=== PATIENT | male | born 1995 | race Hispanic/Latino ===

== ENCOUNTER 2019-03-09 19:06 | Emergency (ER) | payer OTHER ==
[2019-03-09] MEDS ORDERED: ONDANSETRON 4 MG (ODT) TAB ONE (19:35)
[2019-03-09] MEDS ORDERED: ACETAMINOPHEN 500 MG TAB ONE (20:16)
--- NOTE | 2019-03-09 20:16 | ER ---
Nurse's Notes [facility] Name: George Monteiro Age: 23 yrs Sex: Male : 1995 Arrival Date: 03/09/2019 Time: 19:11 Bed 13 Private MD: Diagnosis: Influenza due to other identified influenza virus-influenza B Presentation: 03/09 19:18 Presenting complaint: Patient states: Fever of TMAX 101 UP TO 104, reports taking sg dayquil at around 1100 today, reports chills and bodyaches and nausea for 1 day now. Transition of care: patient was not received from another setting of care. Onset of symptoms was March 09, 2019. Risk Assessment: Do you want to hurt yourself or someone else? Patient reports no desire to harm self or others. Initial Sepsis Screen: Does the patient meet any 2 criteria? HR > 90 bpm. Does the patient have a suspected source of infection? No. Patient's initial sepsis screen is negative. Care prior to arrival: None. 19:18 Method Of Arrival: Ambulatory sg 19:18 Acuity: PRUDENCE 4 sg Historical: - Allergies: 19:21 No Known Allergies; sg - Home Meds: 19:21 None [Active]; sg - PMHx: 19:21 None; sg - PSHx: 19:21 None; sg - Immunization history:: Adult Immunizations up to date. - Social history:: Smoking status: Patient/guardian denies using tobacco. - Ebola Screening: : Patient negative for fever greater than or equal to 101.5 degrees Fahrenheit, and additional compatible Ebola Virus Disease symptoms Patient denies exposure to infectious person Patient denies travel to an Ebola-affected area in the 21 days before illness onset No symptoms or risks identified at this time. Assessment: 19:20 General: Appears in no apparent distress. uncomfortable, well groomed, well developed, sg well nourished, Behavior is calm, cooperative, appropriate for age. Pain: Complains of pain in body aches. Neuro: Level of Consciousness is awake, alert, obeys commands, Oriented to person, place, time. Cardiovascular: Heart tones S1 S2 present. Respiratory: Airway is patent Respiratory effort is even, unlabored, Respiratory pattern is. GI: Abdomen is flat, non-distended, Reports nausea. : No signs and/or symptoms were reported regarding the genitourinary system. EENT: No signs and/or symptoms were reported regarding the EENT system. Derm: Skin is pink, warm \T\ dry. Musculoskeletal: Circulation, motion, and sensation intact. Range of motion: intact in all extremities. Vital Signs: 19:19 BP 125 / 67; Pulse 98; Resp 18; Pulse Ox 100% on R/A; Weight 82.55 kg; Height 5 ft. 9 sg in. (175.26 cm); Pain 4/10; 19:19 Temp 99.5; dm5 20:10 Temp 101.6(O); jb5 19:19 Body Mass Index 26.88 (82.55 kg, 175.26 cm) sg ED Course: 19:11 Patient arrived in ED. cf2 19:16 Jung Page PA is PHCP. cp 19:16 Max Ybarra MD is Attending Physician. cp 19:18 Marbin Beasley, RN is Primary Nurse. sg 19:19 Triage completed. sg 19:21 Arm band placed on. sg 20:05 Flu and/or RSV swab sent to lab. Strep swab sent to lab. sg 20:14 Strep Sent. jb5 20:14 Influenza Screen (a \T\ B) Sent. jb5 20:40 No provider procedures requiring assistance completed. Patient did not have IV access ss during this emergency room visit. Administered Medications: 19:30 Drug: Zofran 4 mg Route: PO; sg 20:18 Drug: Tylenol 1000 mg Route: PO; sg Outcome: 20:14 Discharge ordered by MD. cp 20:40 Discharged to home ambulatory. ss 20:40 Condition: good 20:40 Discharge instructions given to patient, family, Instructed on discharge instructions, follow up and referral plans. medication usage, Demonstrated understanding of instructions, follow-up care, medications, Prescriptions given X 3. 20:41 Patient left the ED. dm5 Signatures: Ebony Shore RN RN dm5 Gay, Steven, RN RN Roslyn Carpio RN RN Jung Page PA PA cp Broussard, Jennifer jb5 Dony Gregory cf2
--- NOTE | 2019-03-09 20:16 | EDPHYS ---
Physician Documentation [facility] Name: George Monteiro Age: 23 yrs Sex: Male : 1995 Arrival Date: 03/09/2019 Time: 19:11 Bed 13 Private MD: ED Physician Max Ybarra HPI: 03/09 19:30 This 23 yrs old Male presents to ER via Ambulatory with complaints of Flu cp Symptoms. 19:30 The patient or guardian reports flu symptoms, arthralgias, myalgias, fever. cp 19:30 Onset: The symptoms/episode began/occurred this morning. Associated signs and symptoms: cp Pertinent positives: fever, nausea, sore throat, Pertinent negatives: diarrhea, vomiting. Severity of symptoms: in the emergency department the symptoms are unchanged despite home interventions. diagnosed with influenza and currently taking prescribed Tamiflu. Historical: - Allergies: 19:21 No Known Allergies; sg - Home Meds: 19:21 None [Active]; sg - PMHx: 19:21 None; sg - PSHx: 19:21 None; sg - Immunization history:: Adult Immunizations up to date. - Social history:: Smoking status: Patient/guardian denies using tobacco. - Ebola Screening: : Patient negative for fever greater than or equal to 101.5 degrees Fahrenheit, and additional compatible Ebola Virus Disease symptoms Patient denies exposure to infectious person Patient denies travel to an Ebola-affected area in the 21 days before illness onset No symptoms or risks identified at this time. ROS: 19:35 Constitutional: Positive for body aches, chills, fever, Negative for poor PO intake. cp 19:35 Eyes: Negative for injury, pain, redness, and discharge. cp 19:35 ENT: Positive for sore throat, Negative for drainage from ear(s), ear pain, difficulty swallowing, difficulty handling secretions. 19:35 Neck: Negative for stiffness. 19:35 Respiratory: Positive for cough. 19:35 Abdomen/GI: Positive for nausea, Negative for vomiting, diarrhea, constipation. 19:35 Skin: Negative for rash. 19:35 Neuro: Negative for altered mental status, headache, weakness. 19:35 All other systems are negative. Exam: 19:40 Constitutional: The patient appears in no acute distress, alert, awake, non-toxic, well cp developed, well nourished, febrile. 19:40 Head/Face: Normocephalic, atraumatic. cp 19:40 Eyes: Periorbital structures: appear normal, Conjunctiva: normal, no exudate, no injection, Lids and lashes: appear normal, bilaterally. 19:40 ENT: External ear(s): are unremarkable, Ear canal(s): are normal, clear, TM's: dullness, bilaterally, Nose: is normal, Mouth: Lips: moist, Oral mucosa: moist, Posterior pharynx: Airway: no evidence of obstruction, patent, Tonsils: with erythema, no enlargement, no exudate, swelling, is not appreciated, erythema, that is mild, exudate, is not appreciated. 19:40 Neck: ROM/movement: is normal, is supple, no meningismus, no nuchal rigidity. 19:40 Chest/axilla: Inspection: normal, Palpation: is normal, no crepitus, no tenderness. 19:40 Cardiovascular: Rate: normal, Rhythm: regular. 19:40 Respiratory: the patient does not display signs of respiratory distress, Respirations: normal, no use of accessory muscles, no retractions, no splinting, no tachypnea, labored breathing, is not present, Breath sounds: bronchial sounds, that are mild, decreased breath sounds, are not appreciated, stridor, is not appreciated, + upper airway congestion. wheezing: is not appreciated. 19:40 Abdomen/GI: Inspection: abdomen appears normal, Palpation: abdomen is soft and non-tender, in all quadrants. 19:40 Skin: no rash present. 19:40 Neuro: Orientation: to person, place \T\ time. Mentation: is normal, Motor: moves all fours, strength is normal. Vital Signs: 19:19 BP 125 / 67; Pulse 98; Resp 18; Pulse Ox 100% on R/A; Weight 82.55 kg; Height 5 ft. 9 sg in. (175.26 cm); Pain 4/10; 19:19 Temp 99.5; dm5 20:10 Temp 101.6(O); jb5 19:19 Body Mass Index 26.88 (82.55 kg, 175.26 cm) sg MDM: 19:16 Patient medically screened. cp 20:00 Differential diagnosis: bronchitis, flu, URI, strep throat. cp 20:14 Antibiotic administration: Not indicated. cp 20:14 Data reviewed: vital signs, nurses notes, lab test result(s), and as a result, I will cp discharge patient. Counseling: I had a detailed discussion with the patient and/or guardian regarding: the historical points, exam findings, and any diagnostic results supporting the discharge/admit diagnosis, lab results, to return to the emergency department if symptoms worsen or persist or if there are any questions or concerns that arise at home. 03/09 19:24 Order name: Influenza Screen (a \T\ B) 03/09 19:24 Order name: Strep 03/09 19:25 Order name: Influenza Screen (A ; Complete Time: 20:12 EDID 03/09 20:12 Interpretation: Normal except: FLUB FLU B ----- \T\nbsp; \T\nbsp; \T\nbsp; \T\nbsp; \T\nbsp; cp \T\nbsp; \T\nbsp; \T\nbsp; \T\nbsp; POSITIVE for FLU B protein antigen. 03/09 19:25 Order name: Group A Streptococcus Rapid Sc; Complete Time: 20:12 EDMS 03/09 20:07 Order name: Throat Culture EDID 03/09 19:24 Order name: PO challenge; Complete Time: 20:04 cp Administered Medications: 19:30 Drug: Zofran 4 mg Route: PO; sg 20:18 Drug: Tylenol 1000 mg Route: PO; sg Disposition: 03/09/19 20:14 Discharged to Home. Impression: Influenza due to other identified influenza virus - influenza B. - Condition is Stable. - Discharge Instructions: Influenza, Adult. - Prescriptions for Zofran 4 mg Oral Tablet - take 1 tablet by ORAL route every 12 hours As needed; 20 tablet. Tamiflu 75 mg Oral Capsule - take 1 tablet by ORAL route every 12 hours for 5 days; 10 tablet. Ibuprofen 800 mg Oral Tablet - take 1 tablet by ORAL route every 8 hours As needed take with food; 30 tablet. - Medication Reconciliation Form, Thank You Letter, Antibiotic Education, Prescription Opioid Use form. - Follow up: Private Physician; When: 2 - 3 days; Reason: Worsening of condition. - Problem is new. - Symptoms have improved. Signatures: Dispatcher [employer] EDID Ebony Shore, RN RN dm5 Marbin Beasley RN RN sg Jung Page PA PA cp Corrections: (The following items were deleted from the chart) 20:41 20:14 03/09/2019 20:14 Discharged to Home. Impression: Influenza due to other dm5 identified influenza virus - influenza B. Condition is Stable. Prescriptions for Zofran 4 mg Oral Tablet - take 1 tablet by ORAL route every 12 hours As needed; 20 tablet, Tamiflu 75 mg Oral Capsule - take 1 tablet by ORAL route every 12 hours for 5 days; 10 tablet. and Forms are Medication Reconciliation Form, Thank You Letter, Antibiotic Education, Prescription Opioid Use. Follow up: Private Physician; When: 2 - 3 days; Reason: Worsening of condition. Problem is new. Symptoms have improved. cp 03/10 16:19 03/09 19:05 Constitutional: Positive for body aches, chills, fever, Negative for poor cp PO intake, cp
[2019-03-09 20:58] VITALS: BP 125/67; TEMP 101.6; O2SAT 100
== END 2019-03-09 20:41 | disposition home or self-care (01) ==
LOC: EDSEX 19:06 → ER 19:06
DX: J10.1 Influenza due to other identified influenza virus with other respiratory manifestations (principal)
CPT/HCPCS: 87070; 87081; 87804; 99283

== ENCOUNTER 2020-09-09 19:30 | Emergency (ER) | payer OTHER ==
--- OUTSIDE RECORDS SUMMARY | 2020-09-09 19:32 | XMS REPORT | Continuity of Care Document ---
:1995 Author Organization [facility] t Address [address] [place] [address] [address]. [address] [place] [address] Care Team Providers Name Role Phone Sharon Gutierres Attending Clinician Problems This patient has no known problems. Allergies, Adverse Reactions, Alerts This patient has no known allergies or adverse reactions. Medications This patient has no known medications. Procedures This patient has no known procedures. Encounters Start End Encounter Admission Attending Care Care Encounter Source Date/Time Date/Time Type Type Clinicians Facility Department ID 2019-06-02 2019-06-02 Emergency Kadeem [facility] [id number] 21:50:43 22:55:00 Sharon Hebert [id number] [place] [id number] [place] [id number] Results This patient has no known results.
[2020-09-09] MEDS ORDERED: CYCLOBENZAPRINE 10 MG TAB ONE (20:18)
[2020-09-09] MEDS ORDERED: HYDROCODONE/APAP 5/325 MG TAB ONE (20:19)
[2020-09-09] MEDS ORDERED: KETOROLAC 30 MG/ML INJ ONE (20:19)
--- NOTE | 2020-09-09 20:53 | RAD REPORT ---
EXAM DESCRIPTION: CTSpine Lumbar Wo Con09/09/2020 8:40 pm CLINICAL HISTORY: Back pain and radiculopathy COMPARISON: None TECHNIQUE: Computed axial tomography lumbar spine was obtained with coronal and sagittal reconstruct ion. All CT scans are performed using dose optimization technique as appropriate and may include automated exposure control or mA/KV adjustment according to patient size. FINDINGS: No fracture is seen. No dislocation is noted. Small left lateral disc bulge/herniation L2-3 Small left lateral disc bulge/herniation L3-4 Small central disc bulge/herniation L5-S1 IMPRESSION: Negative for a lumbar fracture. Small left lateral disc bulge/herniation L2-3 Small left lateral disc bulge/herniation L3-4 Small central disc bulge/herniation L5-S1 If clinically indicated nonemergent MRI lumbar spine could be obtained for further evaluation
--- NOTE | 2020-09-09 21:23 | ER ---
Nurse's Notes [facility] Name: George Monteiro Age: 24 yrs Sex: Male : 1995 Arrival Date: 09/09/2020 Time: 19:34 Bed 23 Private MD: Diagnosis: Low back pain-herniated disc Presentation: 09/09 19:44 Chief complaint: Patient states: R low back pain started 2 weeks STRIP[employer] BL[employer] then went away. ca1 Today was training for [employer], it started again with a sharp pain. Coronavirus screen: Client denies travel out of the [place] in the last 14 days. At this time, the client does not indicate any symptoms associated with coronavirus-19. Ebola Screen: Patient negative for fever greater than or equal to 101.5 degrees Fahrenheit, and additional compatible Ebola Virus Disease symptoms Patient denies exposure to infectious person. Patient denies travel to an Ebola-affected area in the 21 days before illness onset. No symptoms or risks identified at this time. Initial Sepsis Screen: Does the patient meet any 2 criteria? No. Patient's initial sepsis screen is negative. Does the patient have a suspected source of infection? No. Patient's initial sepsis screen is negative. Risk Assessment: Do you want to hurt yourself or someone else? Patient reports no desire to harm self or others. Onset of symptoms was September 09, 2020. 19:44 Method Of Arrival: Ambulatory ca1 19:44 Acuity: PRUDENCE 3 ca1 Historical: - Allergies: 19:46 No Known Allergies; ca1 - Home Meds: 19:46 None [Active]; ca1 - PMHx: 19:46 None; ca1 - PSHx: 19:46 None; ca1 - Immunization history:: Client reports having NOT received the Covid vaccine. Flu vaccine is not up to date. - Social history:: Smoking status: Patient denies any tobacco usage or history of. Screenin:03 Abuse screen: Denies threats or abuse. Denies injuries from another. Nutritional ld1 screening: No deficits noted. Tuberculosis screening: No symptoms or risk factors identified. Fall Risk None identified. Assessment: 20:03 General: Appears in no apparent distress. uncomfortable, Behavior is calm, cooperative, ld1 appropriate for age. Pain: Complains of pain in low back area Pain does not radiate. Pain currently is 8 out of 10 on a pain scale. Quality of pain is described as stabbing, throbbing, Pain began X two weeks Is intermittent. Neuro: Level of Consciousness is awake, alert, obeys commands, Oriented to person, place, time, situation, Appropriate for age. Cardiovascular: Capillary refill < 3 seconds Patient's skin is warm and dry. Respiratory: Airway is patent Respiratory effort is even, unlabored, Respiratory pattern is regular, symmetrical. GI: Abdomen is flat, non-distended. : No signs and/or symptoms were reported regarding the genitourinary system. EENT: No signs and/or symptoms were reported regarding the EENT system. Derm: No signs and/or symptoms reported regarding the dermatologic system. 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 Vital Signs: 19:44 BP 136 / 82; Pulse 73; Resp 16 S; Temp 97.8(TE); Pulse Ox 99% on R/A; Weight 90.72 kg ca1 (R); Height 5 ft. 11 in. (180.34 cm) (R); Pain 8/10; 20:03 BP 129 / 80; Pulse 76; Resp 18; Pulse Ox 100% ; ld1 19:44 Body Mass Index 27.89 (90.72 kg, 180.34 cm) ca1 ED Course: 19:34 Patient arrived in ED. es 19:45 Triage completed. ca1 19:46 Rosita Brito, VAIBHAV is Primary Nurse. ld1 19:46 Arm band placed on right wrist. ca1 19:47 [facility]C [facility] kb 19:47 Zurdo Christian MD is Attending Physician. kb 20:03 Patient has correct armband on for positive identification. Bed in low position. Call ld1 light in reach. Side rails up X2. Pulse ox on. NIBP on. 20:03 No provider procedures requiring assistance completed. ld1 20:40 CT Lumbar Spine Wo Con In Process Unspecified. EDMS 21:46 Patient did not have IV access during this emergency room visit. ld1 Administered Medications: 20:02 Drug: Ketorolac 60 mg Route: IM; Site: right gluteus; ld1 20:40 Follow up: Response: No adverse reaction ld1 20:02 Drug: Flexeril (cyclobenzaprine) 10 mg Route: PO; ld1 20:40 Follow up: Response: No adverse reaction ld1 20:02 Drug: HYDROcodone-acetaminophen 5 mg-325 mg 1 tabs Route: PO; ld1 20:40 Follow up: Response: No adverse reaction ld1 Outcome: 21:22 Discharge ordered by MD. braswell 21:44 Discharged to ld1 21:44 Discharged to home ambulatory. 21:44 Condition: stable 21:44 Discharge instructions given to 21:44 Discharge instructions given to patient, family, Instructed on discharge instructions, follow up and referral plans. medication usage, Demonstrated understanding of instructions, follow-up care, medications. 21:46 Patient left the ED. ld1 Signatures: Dispatcher [employer] Venecia Mantilla, FEROZ-Lucy REDMAN-Brittany Velasquez Cheryl RN RN ca1 Rosita Brito RN RN ld1
--- NOTE | 2020-09-09 21:23 | EDPHYS ---
Physician Documentation [facility] Name: George Monteiro Age: 24 yrs Sex: Male : 1995 Arrival Date: 09/09/2020 Time: 19:34 Bed 23 Private MD: ED Physician Zurdo Christian HPI: 09/10 00:24 This 24 yrs old Male presents to ER via Ambulatory with complaints of Low Back kb Pain. 00:24 The patient presents with pain that is acute. The symptoms are located in the low back. kb The pain does not radiate. The problem was sustained teakwondo. Onset: The symptoms/episode began/occurred 2 week(s) ago, and became worse today. Modifying factors: The patient symptoms are alleviated by nothing, the patient symptoms are aggravated by any movement. Associated signs and symptoms: The patient has no apparent associated signs or symptoms. Severity of symptoms: At their worst the symptoms were moderate, in the emergency department the symptoms are unchanged. The patient has not experienced similar symptoms in the past. The patient has not recently seen a physician. 00:25 Pt reports he had pain to low back 2 weeks ago that got better, but tonight while doing kb teakwondo his back started hurting again. Historical: - Allergies: 09/09 19:46 No Known Allergies; ca1 - Home Meds: 19:46 None [Active]; ca1 - PMHx: 19:46 None; ca1 - PSHx: 19:46 None; ca1 - Immunization history:: Client reports having NOT received the Covid vaccine. Flu vaccine is not up to date. - Social history:: Smoking status: Patient denies any tobacco usage or history of. ROS: 09/10 00:24 Constitutional: Negative for fever, chills, and weight loss. kb Back: Positive for pain at rest, pain with movement, of the low back area. All other systems are negative. Exam: 00:23 Constitutional: This is a well developed, well nourished patient who is awake, alert, kb and in no acute distress. Head/Face: Normocephalic, atraumatic. ENT: Moist Mucous membranes Cardiovascular: Regular rate and rhythm with a normal S1 and S2. No gallops, murmurs, or rubs. No pulse deficits. Respiratory: Respirations even and unlabored. No increased work of breathing, no retractions or nasal flaring. Abdomen/GI: Soft, non-tender. No distention Skin: Warm, dry with normal turgor. Normal color. MS/ Extremity: Pulses equal, no cyanosis. Neurovascular intact. Full, normal range of motion. Neuro: Awake and alert, GCS 15, oriented to person, place, time, and situation. Moves all extremities. Normal gait. Psych: Awake, alert, with orientation to person, place and time. Behavior, mood, and affect are within normal limits. 00:23 Back: pain, that is moderate, of the low back area, ROM is painful, with all movement, normal spinal alignment noted. Vital Signs: 09/09 19:44 BP 136 / 82; Pulse 73; Resp 16 S; Temp 97.8(TE); Pulse Ox 99% on R/A; Weight 90.72 kg ca1 (R); Height 5 ft. 11 in. (180.34 cm) (R); Pain 8/10; 20:03 BP 129 / 80; Pulse 76; Resp 18; Pulse Ox 100% ; ld1 19:44 Body Mass Index 27.89 (90.72 kg, 180.34 cm) ca1 MDM: 19:47 Patient medically screened. kb 09/10 00:15 Data reviewed: vital signs, nurses notes. Data interpreted: Pulse oximetry: on room air kb is 100 %. Interpretation: normal. Counseling: I had a detailed discussion with the patient and/or guardian regarding: the historical points, exam findings, and any diagnostic results supporting the discharge/admit diagnosis, radiology results, the need for outpatient follow up, a family practitioner, to return to the emergency department if symptoms worsen or persist or if there are any questions or concerns that arise at home. 09/09 19:57 Order name: CT Lumbar Spine Wo Con; Complete Time: 21:03 kb Administered Medications: 09/09 20:02 Drug: Ketorolac 60 mg Route: IM; Site: right gluteus; ld1 20:40 Follow up: Response: No adverse reaction ld1 20:02 Drug: Flexeril (cyclobenzaprine) 10 mg Route: PO; ld1 20:40 Follow up: Response: No adverse reaction ld1 20:02 Drug: HYDROcodone-acetaminophen 5 mg-325 mg 1 tabs Route: PO; ld1 20:40 Follow up: Response: No adverse reaction ld1 Disposition Summary: 09/09/20 21:22 Discharge Ordered Location: Home kb Condition: Stable kb Diagnosis - Low back pain - herniated disc kb Followup: kb - With: Emergency Department - When: As needed - Reason: Worsening of condition Followup: kb - With: Private Physician - When: 2 - 3 days - Reason: Recheck today's complaints, Continuance of care, Re-evaluation by your physician Discharge Instructions: - Discharge Summary Sheet kb - Back Injury Prevention, [id number] kb - Herniated Disk, [id number] kb Forms: - Medication Reconciliation Form kb - Thank You Letter kb - Antibiotic Education kb - Prescription Opioid Use kb Prescriptions: - Cyclobenzaprine 10 mg Oral Tablet - take 1 tablet by ORAL route every 8 hours As needed; 21 tablet; Refills: 0, kb Product Selection Permitted - Diclofenac Sodium 75 mg Oral tablet,delayed release (DR/EC) - take 1 tablet by ORAL route 2 times per day As needed; 30 tablet; Refills: 0, kb Product Selection Permitted Addendum: 09/12/2020 15:26 Co-signature as Attending Physician, Zurdo Christian MD I agree with the assessment and t w4 plan of care. Signatures: Dispatcher [employer] Venecia Mantilla, CHEESE CUTTER-C CHEESE CUTTER-Zurdo Taveras MD MD tw4 Christal Aaron RN RN ca1 Rosita Brito RN RN ld1
[2020-09-09 21:51] VITALS: TEMP 97.8
[2020-09-09 21:53] VITALS: BP 129/80; O2SAT 100
== END 2020-09-09 21:46 | disposition home or self-care (01) ==
LOC: ER 19:30
DX: M51.26 Other intervertebral disc displacement, lumbar region (principal)
CPT/HCPCS: 72131; 96372; 99283

== ENCOUNTER 2020-09-20 17:29 | Emergency (ER) | payer OTHER ==
--- OUTSIDE RECORDS SUMMARY | 2020-09-20 17:32 | XMS REPORT | Continuity of Care Document ---
:1995 Author Organization [facility] t Address [address] [place] [address] [address]. Leone. [address] [place] [address] Care Team Providers Name Role Phone Sharon [...] Facility Department ID 2019-06-02 2019-06-02 Emergency Kadeem [facility] [id number] 21:50:43 22:55:00 Sharon Hebert [id number] [place] [id number] [place] [id number] [id number] Results This patient has no known results.
[2020-09-20] MEDS ORDERED: DOXYCYCLINE 100 MG CAP PO ONE (19:56)
[2020-09-20] MEDS ORDERED: TETANUS & DIPHTHERIA TOX,ADULT 0.5 ML VIAL ONE (19:56)
--- NOTE | 2020-09-20 20:00 | ER ---
Nurse's Notes [facility] Name: George Monteiro Age: 24 yrs Sex: Male : 1995 Arrival Date: 09/20/2020 Time: 17:37 Bed 19 Private MD: Diagnosis: Laceration of the Right Hand Presentation: 09/20 17:47 Chief complaint: Patient states: [place] Cut R hand on oyster shells ll1 around 1300 today. No active bleeding. <2 cm laceration to outer edge of hand (near 5 th digit). 2 abrasions near the laceration. Coronavirus screen: Client denies travel out of the [place] in the last 14 days. At this time, the client does not indicate any symptoms associated with coronavirus-19. Ebola Screen: Patient denies travel to an Ebola-affected area in the 21 days before illness onset. Complicating Factors: There are no complicating factors for this patient. Initial Sepsis Screen: Does the patient meet any 2 criteria? No. Patient's initial sepsis screen is negative. Does the patient have a suspected source of infection? Yes: Skin breakdown/wound. Risk Assessment: Do you want to hurt yourself or someone else? Patient reports no desire to harm self or others. Onset of symptoms was September 20, 2020. 17:47 Method Of Arrival: Ambulatory ll1 17:47 Acuity: PRUDENCE 4 ll1 Historical: - Allergies: 17:49 No Known Allergies; ll1 - PMHx: 17:49 None; ll1 - PSHx: 17:49 None; ll1 - Immunization history:: Client reports having NOT received the Covid vaccine. Flu vaccine is not up to date. Last tetanus immunization: unknown. - Social history:: Smoking status: Patient denies any tobacco usage or history of. Screenin:25 Abuse screen: Denies threats or abuse. Denies injuries from another. Nutritional ss screening: No deficits noted. Tuberculosis screening: Never had TB. Fall Risk None identified. Assessment: 18:25 General: Appears in no apparent distress. comfortable, Behavior is calm, cooperative, ss Denies fever, feeling ill, fatigue, chills. Pain: Complains of pain in Right first web space Pain currently is 5 out of 10 on a pain scale. Quality of pain is described as tender, Pain began 4 hours ago. Is continuous. Neuro: Level of Consciousness is awake, alert, obeys commands, Oriented to person, place, time, situation, Irrigation Laborer are equal bilaterally Speech is normal. Cardiovascular: Patient's skin is warm and dry. Pulses are palpable in right radial artery and left radial artery. Respiratory: Airway is patent Trachea midline Respiratory effort is even, unlabored. Derm: Skin is pink, warm \T\ dry. normal. Musculoskeletal: Circulation, motion, and sensation intact. Range of motion: intact in all extremities, Swelling absent. Injury Description: Laceration sustained to Right first web space is 0.5 to 2.5 cm long, was sustained 2-4 hours ago. is bleeding no active bleeding noted. Injury Description: Laceration. 19:54 Reassessment: Patient appears in no apparent distress at this time. Patient is alert, ca1 oriented x 3, equal unlabored respirations, skin warm/dry/pink. Vital Signs: 17:47 BP 144 / 80; Pulse 70; Resp 16; Temp 98.4; Pulse Ox 100% ; Weight 90.72 kg; Height 5 ll1 ft. 11 in. (180.34 cm); Pain 5/10; 19:54 BP 132 / 82; Pulse 62; Resp 18; Pulse Ox 100% on R/A; ca1 17:47 Body Mass Index 27.89 (90.72 kg, 180.34 cm) ll1 ED Course: 17:37 Patient arrived in ED. ds1 17:49 Triage completed. ll1 17:50 Arm band placed on. ll1 18:18 Patient placed in an exam room, on a stretcher. ll1 18:21 Jose Redd PA is PHCP. [facility] 18:21 Ulices Qucik MD is Attending Physician. [facility] 18:25 Roslyn Carpio, VAIBHAV is Primary Nurse. ss 18:25 Patient has correct armband on for positive identification. Bed in low position. Call ss light in reach. 19:32 Primary Nurse role handed off by Roslyn Carpio, VAIBHAV tt3 19:38 Christal Aaron, VAIBHAV is Primary Nurse. ca1 20:02 Dressings: Band aid x 1 right hand 4X4s X 1; right hand. dh4 20:03 Wound care: to laceration located on right hand was cleaned with Hibiclens, irrigated dh4 with normal saline, Patient tolerated well. 20:24 No provider procedures requiring assistance completed. Patient did not have IV access ca1 during this emergency room visit. 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 Exp: jb4 07/26/2022. Lot #: [id number]. } Route: IM; Site: right deltoid; 20:20 Follow up: Response: No adverse reaction ca1 19:39 Drug: Doxycycline 100 mg Route: PO; jb4 20:20 Follow up: Response: No adverse reaction ca1 Outcome: 20:00 Discharge ordered by MD. mcclellan 20:24 Discharged to home ambulatory. ca1 20:24 Condition: stable 20:24 Discharge instructions given to patient, Instructed on discharge instructions, follow up and referral plans. medication usage, wound care, Demonstrated understanding of instructions, follow-up care, medications, wound care, Prescriptions given X 1. 20:24 Patient left the ED. ca1 Signatures: Jose Redd PA PA jmm Sanford, Demi ds1 Roslyn Carpio RN RN Enmanuel Masters RN RN jb4 Christal Aaron RN RN ca1 Jorge Luis Dye 4 Abdiel Cleaning RN RN ll1 Reji Gipson tt3 Corrections: (The following items were deleted from the chart) 18:19 17:47 Chief complaint: Patient states: [place] Cut R hand on oyster ll1 shells around 1300 today. No active bleeding. <2 cm laceration to out edge of hand (near 5 th digit). 2 abrasions near the laceration. ll1
--- NOTE | 2020-09-20 20:01 | EDPHYS ---
Physician Documentation [facility] Name: George Monteiro Age: 24 yrs Sex: Male : 1995 Arrival Date: 09/20/2020 Time: 17:37 Bed 19 Private MD: ED Physician Ulices Quick HPI: 09/20 19:24 This 24 yrs old Male presents to ER via Ambulatory with complaints of jmm Laceration To Hand. 19:24 The patient has a laceration cut on oyster shells. The laceration(s) is(are) located on jmm the right hand. Onset: The symptoms/episode began/occurred acutely, just prior to arrival. It is unknown whether or not the patient has had similar symptoms in the past. Historical: - Allergies: 17:49 No Known Allergies; ll1 - PMHx: 17:49 None; ll1 - PSHx: 17:49 None; ll1 - Immunization history:: Client reports having NOT received the Covid vaccine. Flu vaccine is not up to date. Last tetanus immunization: unknown. - Social history:: Smoking status: Patient denies any tobacco usage or history of. ROS: 19:24 Constitutional: Negative for fever, chills, and weight loss, Cardiovascular: Negative jmm for chest pain, palpitations, and edema, Respiratory: Negative for shortness of breath, cough, wheezing, and pleuritic chest pain. 19:24 Skin: Positive for laceration(s). 19:24 All other systems are negative. Exam: 19:24 Constitutional: This is a well developed, well nourished patient who is awake, alert, jmm and in no acute distress. Head/Face: atraumatic. Eyes: EOMI, no conjunctival erythema appreciated ENT: Moist Mucus Membranes Neck: Trachea midline, Supple Chest/axilla: Normal chest wall appearance and motion. Cardiovascular: Regular rate and rhythm. No edema appreciated Respiratory: Normal respirations, no respiratory distress appreciated Abdomen/GI: Non distended, soft Back: Normal ROM 19:24 Skin: 1 cm laceration noted to the palm of the right hand, no active bleeding appreciated. 19:24 Neuro: Orientation: is normal, Mentation: is normal, Memory: is normal. 19:24 Psych: Behavior/mood is pleasant, cooperative. Vital Signs: 17:47 BP 144 / 80; Pulse 70; Resp 16; Temp 98.4; Pulse Ox 100% ; Weight 90.72 kg; Height 5 ll1 ft. 11 in. (180.34 cm); Pain 5/10; 19:54 BP 132 / 82; Pulse 62; Resp 18; Pulse Ox 100% on R/A; ca1 17:47 Body Mass Index 27.89 (90.72 kg, 180.34 cm) ll1 MDM: 19:24 Patient medically screened. [facility] 19:59 Data reviewed: vital signs, nurses notes. Counseling: I had a detailed discussion with vy the patient and/or guardian regarding: the historical points, exam findings, and any diagnostic results supporting the discharge/admit diagnosis, the need for outpatient follow up, to return to the emergency department if symptoms worsen or persist or if there are any questions or concerns that arise at home. ED course: Wound cleaned, patient given wound infection return precautions. patient understood and agrees with the plan of care. . 09/20 19:26 Order name: [facility]. Order: clean wound, wet to dry; Complete Time: 19:57 [facility] Administered Medications: 19:39 Drug: Tetanus-Diphtheria Toxoid Adult 0.5 ml {Barn Hand: [employer]. Exp: jb4 07/26/2022. Lot #: [id number]. } Route: IM; Site: right deltoid; 20:20 Follow up: Response: No adverse reaction ca1 19:39 Drug: Doxycycline 100 mg Route: PO; jb4 20:20 Follow up: Response: No adverse reaction ca1 Disposition Summary: 09/20/20 20:00 Discharge Ordered Location: Home [facility] Condition: Stable [facility] Diagnosis - Laceration of the Right Hand [facility] Followup: [facility] - With: Private Physician - When: 2 - 3 days - Reason: Recheck today's complaints, Continuance of care, Re-evaluation by your physician Discharge Instructions: - Discharge Summary Sheet vicky - Nonsutured Laceration Care [facility] Forms: - Medication Reconciliation Form [facility] - Thank You Letter vy - Antibiotic Education [facility] - Prescription Opioid Use [facility] - Work release form ca1 Prescriptions: - Doxycycline Hyclate 100 mg Oral Tablet - take 1 tablet by ORAL route every 12 hours; 20 tablet; Refills: 0, Product [facility] Selection Permitted Addendum: 09/22/2020 23:22 Co-signature as Attending Physician, Ulices Quick MD. r n Signatures: Jose Redd PA PA jmm Nieto, Roman, MD MD rn Enmanuel Masters RN RN jb4 Abdiel Cleaning RN RN ll1 Galen, Christal ESPOSITO ca1
[2020-09-20 20:29] VITALS: TEMP 98.4; O2SAT 100
[2020-09-20 20:30] VITALS: BP 132/82
== END 2020-09-20 20:24 | disposition home or self-care (01) ==
LOC: ER 17:29
DX: S61.411A Laceration without foreign body of right hand, initial encounter (principal); W26.8XXA Contact with other sharp object(s), not elsewhere classified, initial encounter; Z23 Encounter for immunization
CPT/HCPCS: 90471; 90714; 99284

== ENCOUNTER 2021-02-23 21:29 | Emergency (ER) | payer OTHER ==
--- OUTSIDE RECORDS SUMMARY | 2021-02-23 21:33 | XMS REPORT | Continuity of Care Document ---
:1995 Author Organization [facility] t Address [address] [place] [address] Dr. Leone. [address] [place] [address] Care Team Providers Name Role Phone Bernard Gutierres Attending Clinician BLAIR HERNANDEZ Attending Clinician Unavailable Problems This patient has no known problems. Allergies, Adverse Reactions, Alerts Allergy Allergy Status Severity Reaction(s) Onset Inactive Treating Comm ents Source Name Type Date Date Clinician NO KNOWN Drug Active [facility] Medications This patient has no known medications. Procedures This patient has no known procedures. Encounters Start End Encounter Admission Attending Care Care Encounter Source Date/Time Date/Time Type Type Clinicians Facility Department ID 2019-06-02 2019-06-02 [id number] 21:50:43 22:55:00 Bernard L[facility] [place] [id number] [place] [id number] [place] [id number] 2019-06-02 2019-06-02 [facility] [id number] [facility] 21:50:43 21:50:43 BERNARD [facility] Results This patient has no known results.
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
--- NOTE | 2021-02-24 01:39 | EDPHYS ---
Physician Documentation [facility] Name: George Monteiro Age: 25 yrs Sex: Male : 1995 Arrival Date: 02/23/2021 Time: 21:32 Bed 13 Private MD: ED Physician Jerry Mcmahon HPI: 02/23 23:17 This 25 yrs old Male presents to ER via Ambulatory with complaints of Closed jmm Head Injury-Adult, Fall Injury. 23:17 The patient's problem is reported as Headache. Onset: The symptoms/episode jmm began/occurred acutely, just prior to arrival. The symptoms are alleviated by nothing. The symptoms are aggravated by nothing. Associated signs and symptoms: Pertinent positives: nausea, Pertinent negatives: vomiting. The patient has not experienced similar symptoms in the past. This is a 25-year-old male with no chronic medical conditions presents emerged part with complaints of headache and bilateral ear pain after falling. Patient also complains of neck pain. Historical: - Allergies: 22:12 No Known Allergies; lp1 - Home Meds: 22:12 None [Active]; lp1 - PMHx: 22:12 None; lp1 - PSHx: 22:12 None; lp1 - Immunization history:: Adult Immunizations up to date. - Social history:: Smoking status: Patient denies any tobacco usage or history of. ROS: 23:17 Constitutional: Negative for fever, chills, and weight loss. jmm 23:17 ENT: Positive for ear pain. 23:17 Neck: Positive for pain with movement. 23:17 Neuro: Positive for headache. 23:17 All other systems are negative. Exam: 23:17 Radiologist reports: Negative [facility] 23:17 Constitutional: This is a well developed, well nourished patient who is awake, alert, and in no acute distress. Head/Face: atraumatic. Eyes: EOMI, no conjunctival erythema appreciated 23:17 Chest/axilla: Normal chest wall appearance and motion. Cardiovascular: Regular rate and rhythm. No edema appreciated Respiratory: Normal respirations, no respiratory distress appreciated Abdomen/GI: Non distended, soft Back: Normal ROM Skin: General appearance color normal MS/ Extremity: Moves all extremities, no obvious deformities appreciated, no edema noted to the lower extremities Neuro: Awake and alert, normal gait Psych: Behavior is normal, Mood is normal, Patient is cooperative and pleasant 23:17 ENT: TM's: erythema, that is mild, bilaterally. Vital Signs: 22:12 BP 124 / 75; Pulse 65; Resp 16; Temp 98.5(TE); Pulse Ox 99% on R/A; Weight 88.9 kg (R); lp1 Height 5 ft. 11 in. (180.34 cm); Pain 6/10; 22:56 BP 117 / 73; Pulse 63; Resp 16; Temp 98.3; Pulse Ox 100% ; sv1 02/24 00:28 BP 112 / 63; Pulse 70; Resp 16; Pulse Ox 100% 0 lpm ; Pain 6/10; sv1 01:49 BP 131 / 46; Pulse 68; Resp 16; Temp 98.0; Pulse Ox 99% 0 lpm ; Pain 0/10; sv1 02/23 22:12 Body Mass Index 27.33 (88.90 kg, 180.34 cm) lp1 MDM: 02/23 23:17 Patient medically screened. [facility] 02/24 01:37 Data reviewed: vital signs, nurses notes. Counseling: I had a detailed discussion with vy the patient and/or guardian regarding: the historical points, exam findings, and any diagnostic results supporting the discharge/admit diagnosis, radiology results, the need for outpatient follow up, to return to the emergency department if symptoms worsen or persist or if there are any questions or concerns that arise at home. 02/23 23:18 Order name: CT Head C Spine [facility] Administered Medications: No medications were administered Disposition: 03:31 Co-signature as Attending Physician, Jerry Mcmahon MD. [email or web address] Disposition Summary: 02/24/21 01:38 Discharge Ordered Location: Home [facility] Condition: Stable [facility] Diagnosis - Unspecified injury of head, initial encounter [facility] Followup: [facility] - With: Private Physician - When: 2 - 3 days - Reason: Recheck today's complaints, Continuance of care, Re-evaluation by your physician Discharge Instructions: - Discharge Summary Sheet [facility] - Head Injury, Adult [facility] Forms: - Medication Reconciliation Form [facility] - Thank You Letter [facility] - Antibiotic Education [facility] - Prescription Opioid Use vicky Signatures: Dispatcher [employer] EDJose Powers PA PA jmm Pena, Laura RN RN lp1 Jerry Mcmahon MD MD mh7
[2021-02-24 02:02] VITALS: BP 131/46; TEMP 98; O2SAT 99
--- NOTE | 2021-02-24 13:50 | RAD REPORT ---
EXAM DESCRIPTION: CT Head and Cervical Spine Without Intravenous Contrast CLINICAL HISTORY: The patient is 25 years old and is Male; fall, head injury TECHNIQUE: Axial computed tomography images of the head/brain and cervical spine without intravenous contrast. Sagittal and coronal reformatted images were created and reviewed. This CT exam was pe rformed using one or more of the following dose reduction techniques: automated exposure control, a djustment of the mA and/or kV according to patient size, and/or use of iterative reconstruction techn ique. DLP: 1309 mGy*cm COMPARISON: None. FINDINGS: BRAIN: Unremarkable. No hemorrhage. No significant white matter disease. No edema. VENTRICLES: Unremarkable. No ventriculomegaly. SKULL: No acute fracture. SINUSES: Unremarkable as visualized. No acute sinusitis. MASTOID AIR CELLS: Unremarkable as visualized. No mastoid effusion. VERTEBRAE: Straightening of cervical lordosis. No acute fracture. DISCS/SPINAL CANAL/NEURAL FORAMINA: No acute findings. No spinal canal stenosis. SOFT TISSUES: Unremarkable. IMPRESSION: 1. No acute intracranial abnormality. 2. No acute cervical spine fracture or subluxation. Electronically signed by: Mike Hopkins DO 02/24/2021 12:03 AM MANAGER [employer]ISTR[employer] Due to temporary technical issues with the PACS/Fluency reporting system, reports are being signed by the in house radiologists without review as a courtesy to insure prompt reporting. The interpreting radiologist is fully responsible for the content of the report.
== END 2021-02-24 01:53 | disposition home or self-care (01) ==
LOC: ER 21:29
DX: S09.90XA Unspecified injury of head, initial encounter (principal); W19.XXXA Unspecified fall, initial encounter
CPT/HCPCS: 70450; 72125; 99283

== ENCOUNTER 2021-03-19 11:37 | Emergency (ER) | payer OTHER ==
--- OUTSIDE RECORDS SUMMARY | 2021-03-19 11:40 | XMS REPORT | Continuity of Care Document ---
:1995 Author Organization [facility] t Address [address] [place] [address] Dr. Leone. [address] [place] [address] Care Team Providers Name Role Phone Bernard Gutierres Attending Clinician BLAIR HERNANDEZ Attending Clinician Unavailable Problems This patient has no known problems. Allergies, Adverse Reactions, Alerts Allergy Allergy Status Severity Reaction(s) Onset Inactive Treating Comm ents Source Name Type Date Date Clinician NO KNOWN Drug Active [facility] Medications This patient has no known medications. Procedures This patient has no known procedures. Encounters Start End Encounter Admission Attending Care Care Encounter Source Date/Time Date/Time Type Type Clinicians Facility Department ID 2019-06-02 2019-06-02 [id number] 21:50:43 22:55:00 Bernard [facility] [id number] [place] [id number] [place] [id number] 2019-06-02 2019[facility]06-02 [facility] [id number] [facility] 21:50:43 21:50:43 BERNARD [facility] Results This patient has no known results.
[2021-03-19 13:30] LABS: Urine Blood Negative (Negative); Urine Glucose Negative (Negative); Urine Protein Negative (Negative); Urine Specific Gravity 1.025 (1.005-1.030); Urine pH 6.5 (5.0-7.0)
[2021-03-19 14:00] LABS: Urine Bacteria NONE SEEN /HPF (NONE SEEN); Urine RBC <5 /HPF (NONE SEEN)
--- NOTE | 2021-03-19 14:09 | RAD REPORT ---
EXAM DESCRIPTION: US - Scrotum Testicles - 03/19/2021 1:24 pm CLINICAL HISTORY: Testicular pain COMPARISON: None FINDINGS: Right testicle measures 4.6 x 2.2 x 2.9 centimeters. Echotexture is homogeneous. Increased blood flow Left testicle measures 4.1 x 2 x 3 centimeters. Echotexture is homogeneous. Normal blood flow The left epididymis is normal in size and echotexture. Normal blood flow Increased blood flow right epididymis. 5 millimeter spermatocele. Prominent echogenic material right scrotum IMPRESSION: Right epididymitis/right orchitis Echogenic material right scrotum probably inguinal hernia
[2021-03-19] MEDS ORDERED: LIDOCAINE 1% MPF 5 ML VIAL ONE (14:47)
[2021-03-19] MEDS ORDERED: CEFTRIAXONE 1000 MG/VIAL ONE (14:48)
[2021-03-19] MEDS ORDERED: AZITHROMYCIN 250 MG TAB ONE (14:48)
--- NOTE | 2021-03-19 15:28 | EDPHYS ---
Physician Documentation [facility] Name: George Monteiro Age: 25 yrs Sex: Male : 1995 Arrival Date: 03/19/2021 Time: 11:44 Bed 6 Private MD: ED Physician Yuriy Scruggs HPI: 03/19 12:56 This 25 yrs old Male presents to ER via Ambulatory with complaints of Groin jmm Pain. 12:56 The patient presents with scrotal pain. Onset: The symptoms/episode began/occurred jmm gradually. Modifying factors: The symptoms are alleviated by nothing, the symptoms are aggravated by nothing. Associated signs and symptoms: Pertinent negatives: fever. The patient has not experienced similar symptoms in the past. Historical: - Allergies: 12:36 No Known Allergies; vg1 - Home Meds: 12:36 None [Active]; vg1 - PMHx: 12:36 None; vg1 - PSHx: 12:36 None; vg1 - Immunization history:: Client reports having NOT received the Covid vaccine. - Social history:: Smoking status: Patient denies any tobacco usage or history of. Patient uses alcohol, only on a social basis. ROS: 12:56 Constitutional: Negative for fever, chills, and weight loss, Cardiovascular: Negative jmm for chest pain, palpitations, and edema, Respiratory: Negative for shortness of breath, cough, wheezing, and pleuritic chest pain. 12:56 : Positive for testicular pain 12:56 All other systems are negative. Exam: 12:56 Constitutional: This is a well developed, well nourished patient who is awake, alert, jmm and in no acute distress. Head/Face: atraumatic. Eyes: EOMI, no conjunctival erythema appreciated ENT: Moist Mucus Membranes Neck: Trachea midline, Supple Chest/axilla: Normal chest wall appearance and motion. Cardiovascular: Regular rate and rhythm. No edema appreciated Respiratory: Normal respirations, no respiratory distress appreciated Abdomen/GI: Non distended, soft 12:56 Skin: General appearance color normal MS/ Extremity: Moves all extremities, no obvious deformities appreciated, no edema noted to the lower extremities Neuro: Awake and alert, normal gait Psych: Behavior is normal, Mood is normal, Patient is cooperative and pleasant 12:56 : Male external genitalia: swelling: of the epididymis area, that is moderate. Vital Signs: 12:34 BP 136 / 73; Pulse 71; Resp 16; Temp 98.8; Pulse Ox 99% ; Weight 86.18 kg; Height 5 ft. vg1 11 in. (180.34 cm); Pain 8/10; 14:54 BP 118 / 77; Pulse 60; Resp 17; Pulse Ox 100% on R/A; tw2 12:34 Body Mass Index 26.50 (86.18 kg, 180.34 cm) vg1 MDM: 12:56 Patient medically screened. [facility] 15:18 Data reviewed: vital signs, nurses notes. Counseling: I had a detailed discussion with [facility] the patient and/or guardian regarding: the historical points, exam findings, and any diagnostic results supporting the discharge/admit diagnosis, the need for outpatient follow up, to return to the emergency department if symptoms worsen or persist or if there are any questions or concerns that arise at home. 03/19 12:58 Order name: Urine Microscopic Only; Complete Time: 14:34 [facility] 03/19 12:58 Order name: US Scrotum Testicles; Complete Time: 14:34 [facility] 03/19 13:22 Order name: GC ([place]) Probe URINE [facility] 03/19 13:30 Order name: Urine Dipstick-Ancillary; Complete Time: 13:31 [facility] 03/19 12:58 Order name: Urine Dipstick-Ancillary (obtain specimen); Complete Time: 14:25 [facility] Administered Medications: 14:53 Drug: Rocephin (cefTRIAXone) 1 grams {Note: RASS 0.} Route: IM; Site: right gluteus; tw2 15:40 Follow up: Response: No adverse reaction tw2 14:54 Drug: AZITHromycin 1 grams Route: PO; tw2 15:40 Follow up: Response: No adverse reaction tw2 Disposition: 18:01 Co-signature as Attending Physician, Yuriy Scruggs MD I agree with the assessment and kdr plan of care. Disposition Summary: 03/19/21 15:27 Discharge Ordered Location: Home [facility] Condition: Stable [facility] Diagnosis - Epididymitis [facility] Followup: [facility] - With: Lewis Leblanc MD - When: 2 - 3 days - Reason: Recheck today's complaints, Continuance of care, Re-evaluation by your physician Discharge Instructions: - Epididymitis [facility] - Discharge Summary Sheet tw2 Forms: - Medication Reconciliation Form [facility] - Thank You Letter jm - Antibiotic Education [facility] - Work release form tw2 - Prescription Opioid Use [facility] Prescriptions: - Doxycycline Hyclate 100 mg Oral Tablet - take 1 tablet by ORAL route every 12 hours; 20 tablet; Refills: 0, Product jmumair Selection Permitted Signatures: Dispatcher [employer] EDMS Yuriy Scruggs MD MD kdr Mickail, Joel, PA PA jmm Wise, Tara, RN RN tw2 Kristy Cary RN RN vg1 Corrections: (The following items were deleted from the chart) 13:40 12:59 GC (Gonorr/Clamydia) Probe+R.LAB.BRZ ordered. EDMS EDMS
--- NOTE | 2021-03-19 15:28 | ER ---
Nurse's Notes [facility] Name: George Monteiro Age: 25 yrs Sex: Male : 1995 Arrival Date: 03/19/2021 Time: 11:44 Bed 6 Private MD: Diagnosis: Epididymitis Presentation: 03/19 12:34 Chief complaint: Patient states: Right side groin pain since Monday03/16/21 and Right vg1 testicle swelling. States pain 'only when walking'. Denies any pain upon urination. Coronavirus screen: Vaccine status: Patient reports being unvaccinated. Client denies travel out of the [place] in the last 14 days. Ebola Screen: Patient negative for fever greater than or equal to 101.5 degrees Fahrenheit, and additional compatible Ebola Virus Disease symptoms. Initial Sepsis Screen: Does the patient meet any 2 criteria? No. Patient's initial sepsis screen is negative. Does the patient have a suspected source of infection? No. Patient's initial sepsis screen is negative. Risk Assessment: Do you want to hurt yourself or someone else? Patient reports no desire to harm self or others. Onset of symptoms was March 16, 2021. 12:34 Method Of Arrival: Ambulatory vg1 12:34 Acuity: PRUDENCE 3 vg1 Triage Assessment: 12:36 General: Appears in no apparent distress. uncomfortable, Behavior is calm, cooperative. vg1 Pain: Complains of pain in groin Pain currently is 0 out of 10 on a pain scale. at worst was 8 out of 10 on a pain scale. Historical: - Allergies: 12:36 No Known Allergies; vg1 - Home Meds: 12:36 None [Active]; vg1 - PMHx: 12:36 None; vg1 - PSHx: 12:36 None; vg1 - Immunization history:: Client reports having NOT received the Covid vaccine. - Social history:: Smoking status: Patient denies any tobacco usage or history of. Patient uses alcohol, only on a social basis. Screenin:16 Abuse screen: Denies threats or abuse. Nutritional screening: No deficits noted. tw2 Tuberculosis screening: No symptoms or risk factors identified. Fall Risk None identified. Assessment: 14:55 Reassessment: Patient appears in no apparent distress at this time. No changes from tw2 previously documented assessment. Patient and/or family updated on plan of care and expected duration. Pain level reassessed. Patient is alert, oriented x 3, equal unlabored respirations, skin warm/dry/pink. 15:38 Reassessment: Patient appears in no apparent distress at this time. No changes from tw2 previously documented assessment. Patient and/or family updated on plan of care and expected duration. Pain level reassessed. Patient is alert, oriented x 3, equal unlabored respirations, skin warm/dry/pink. Vital Signs: 12:34 BP 136 / 73; Pulse 71; Resp 16; Temp 98.8; Pulse Ox 99% ; Weight 86.18 kg; Height 5 ft. vg1 11 in. (180.34 cm); Pain 8/10; 14:54 BP 118 / 77; Pulse 60; Resp 17; Pulse Ox 100% on R/A; tw2 12:34 Body Mass Index 26.50 (86.18 kg, 180.34 cm) vg1 ED Course: 11:44 Patient arrived in ED. ds1 12:36 Triage completed. vg1 12:36 Arm band placed on. vg1 12:38 Jose Redd PA is PHCP. jmm 12:38 Yuriy Scruggs MD is Attending Physician. jmm 12:40 Bed in low position. Call light in reach. Pulse ox on. NIBP on. tw2 13:16 Fiorella Finnegan, RN is Primary Nurse. tw2 13:24 Scrotum Testicles In Process Unspecified. EDMS 15:27 Lewis Leblanc MD is Referral Physician. [facility] 15:39 No provider procedures requiring assistance completed. Patient did not have IV access tw2 during this emergency room visit. Administered Medications: 14:53 Drug: Rocephin (cefTRIAXone) 1 grams {Note: RASS 0.} Route: IM; Site: right gluteus; tw2 15:40 Follow up: Response: No adverse reaction tw2 14:54 Drug: AZITHromycin 1 grams Route: PO; tw2 15:40 Follow up: Response: No adverse reaction tw2 Outcome: 15:27 Discharge ordered by . jmm 15:39 Discharged to home ambulatory. tw2 15:39 Condition: stable 15:39 Discharge instructions given to patient, Instructed on discharge instructions, follow up and referral plans. medication usage, Demonstrated understanding of instructions, follow-up care, medications, Prescriptions given X 1. 15:39 Patient left the ED. tw2 Signatures: Dispatcher [employer] EDMS Jose Redd PA PA jmm Sanford, Demi ds1 Fiorella Finnegan, RN RN tw2 Kristy Cary RN RN vg1
[2021-03-19 15:45] VITALS: TEMP 98.8
[2021-03-19 15:46] VITALS: BP 118/77; O2SAT 100
== END 2021-03-19 15:39 | disposition home or self-care (01) ==
LOC: ER 11:37
DX: N45.1 Epididymitis (principal)
CPT/HCPCS: 76870; 81003; 81015; 87490; 87590; 96372; 99284

== ENCOUNTER 2021-04-27 14:25 | Emergency (ER) | payer OTHER ==
[2021-04-27] MEDS ORDERED: NA CHLORIDE 0.9% 1,000 ML ONE (16:35)
[2021-04-27 16:40] LABS: Absolute Lymphocytes (CBC) 1.4 K/uL (0.7-4.9); Hematocrit 42.5 % (39.6-49.0); Lymphocytes % 22.4 % (15.3-44.8); MPV 9.3 fL (7.6-11.3); RBC Red Blood Cell Count 4.61 M/uL (4.33-5.43)
[2021-04-27 16:52] LABS: Urine Blood Negative (Negative); Urine Glucose Negative (Negative); Urine Protein Negative (Negative); Urine pH 8.5 (5.0-7.0)
[2021-04-27 16:57] LABS: BUN Blood Urea Nitrogen 11 mg/dL (7-18); Bicarbonate 27 mmol/L (21-32); Creatine Phosphokinase 89 U/L (39-308); Glucose Level 105 mg/dL (74-106); Potassium 4.6 mmol/L (3.5-5.1); Sodium Level 140 mmol/L (136-145)
--- NOTE | 2021-04-27 17:21 | ER ---
Nurse's Notes [facility] Name: George Callaway Age: 25 yrs Sex: Male : 1995 Arrival Date: 04/27/2021 Time: 14:25 Bed Treatment Private MD: Diagnosis: Syncope Near Presentation: 04/27 15:19 Chief complaint: Patient states: he tested positive for COVID 04/23/2021, quarantined ap3 for 5 days, and attempted to go to training this afternoon.. Patient reports feeling light headed and dizzy during this workout, and stopped early. Patient states the symptoms have not resolved. Coronavirus screen: Client reports previous positive COVID test result. Date of collection: April 23, 2021. Ebola Screen: No symptoms or risks identified at this time. Initial Sepsis Screen: Does the patient meet any 2 criteria? Yes Does the patient have a suspected source of infection? No. Patient's initial sepsis screen is negative. Risk Assessment: Do you want to hurt yourself or someone else? Patient reports no desire to harm self or others. Onset of symptoms was April 27, 2021. 15:19 Method Of Arrival: Ambulatory ap3 15:19 Acuity: PRUDENCE 3 ap3 Triage Assessment: 15:23 General: Appears in no apparent distress. Behavior is calm, cooperative, drowsy. ap3 General: Reports feeling ill for fatigue for. Pain: Denies pain. Neuro: Level of Consciousness is awake, alert, obeys commands, awake, and alert but falls asleep easily. Cardiovascular: Patient's skin is warm and dry. Respiratory: Airway is patent Respiratory effort is even, unlabored, Respiratory pattern is regular, symmetrical. Derm:. Musculoskeletal: Reports weakness in generalized weakness. Historical: - Allergies: 15:23 No Known Allergies; ap3 - Home Meds: 15:23 None [Active]; ap3 - PMHx: 15:23 None; ap3 - Immunization history:: Client reports having NOT received the Covid vaccine. - Social history:: Smoking status: Patient denies any tobacco usage or history of. Screenin:25 Abuse screen: Denies threats or abuse. Nutritional screening: No deficits noted. ap3 Tuberculosis screening: No symptoms or risk factors identified. 16:00 Fall Risk None identified. eo2 Assessment: 16:00 General: Appears in no apparent distress. comfortable, Behavior is calm, cooperative. eo2 Pain: Denies pain. Neuro: Level of Consciousness is awake, alert, obeys commands, Oriented to person, place, time, situation, Reports dizziness, "vertigo, I almost passed out" onset today. Cardiovascular: Denies chest pain, shortness of breath. Respiratory: Airway is patent Trachea midline Respiratory effort is even, unlabored, Respiratory pattern is regular, symmetrical, Denies cough, shortness of breath. Vital Signs: 15:19 BP 111 / 76; Pulse 81; Resp 17; Temp 98.2; Pulse Ox 100% ; Weight 86.18 kg; Height 5 ap3 ft. 11 in. (180.34 cm); 16:10 BP 121 / 73 Supine; Pulse 78; Resp 16; Temp 98.6; Pulse Ox 100% on R/A; mb7 16:10 BP 139 / 68 Standing; Pulse 87; Resp 18; Pulse Ox 100% ; mb7 17:39 BP 113 / 65; Pulse 81; Resp 16; Temp 97.9(O); Pulse Ox 99% on R/A; mh5 17:52 BP 119 / 67; Pulse 61; Resp 12; Pulse Ox 100% ; Pain 0/10; eo2 15:19 Body Mass Index 26.50 (86.18 kg, 180.34 cm) ap3 ED Course: 14:25 Patient arrived in ED. as 15:23 Triage completed. ap3 15:25 Arm band placed on right wrist. ap3 15:53 Venecia Saha FNP-C is [facility]. kb 15:53 Min Donnelly MD is Attending Physician. kb 15:57 Patrica Gonzalez RN is Primary Nurse. eo2 16:00 No provider procedures requiring assistance completed. eo2 16:21 EKG done, by ED staff, reviewed by Venecia AGUIAR. mb7 16:33 Inserted saline lock: 20 gauge in right forearm, using aseptic technique. mb7 17:40 Patient has correct armband on for positive identification. Bed in low position. Call mh5 light in reach. Side rails up X 1. tracer bullet section supervisor on. Pulse ox on. NIBP on. 17:50 Troponin High Sensitivity Sent. eo2 17:54 IV discontinued, intact. eo2 Administered Medications: 16:38 Drug: NS 0.9% 1000 ml Route: IV; Rate: 1000 ml; Site: right forearm; eo2 17:50 Follow up: Response: No adverse reaction; IV Status: Completed infusion; IV Intake: eo2 1000ml Intake: 17:50 IV: 1000ml; Total: 1000ml. eo2 Outcome: 17:20 Discharge ordered by MD. braswell 17:54 Discharged to home ambulatory. eo2 17:54 Condition: stable 17:54 Discharge instructions given to patient, Instructed on discharge instructions, follow up and referral plans. Demonstrated understanding of instructions, follow-up care. 17:55 Patient left the ED. eo2 Signatures: Venecia Saha, PROJECT ESTIMATOR-C PROJECT ESTIMATOR-Rachel De Jesus Maria 5 Josi Celaya RN RN romeo3 Elyse Carrillo 7 Patrica Gonzalez RN RN eo2
--- NOTE | 2021-04-27 17:22 | EDPHYS ---
Physician Documentation [facility] Name: George Callaway Age: 25 yrs Sex: Male : 1995 Arrival Date: 04/27/2021 Time: 14:25 Bed Treatment Private MD: ED Physician Min Donnelly HPI: 04/27 17:09 This 25 yrs old Male presents to ER via Ambulatory with complaints of Near kb Syncope. 17:09 The patient has experienced near-syncope. The patient has not experienced similar kb symptoms in the past. The patient has not recently seen a physician. 17:11 Onset: The symptoms/episode began/occurred just prior to arrival. Duration: This was a kb single episode. Context: occurred at gym, occurred while the patient was after workout. Just prior to the episode the patient experienced no apparent symptoms. Associated injury: The patient did not suffer any apparent associated injury. Associated signs and symptoms: Pertinent positives: dizziness. Current symptoms: Currently, the patient is not experiencing any symptoms. Pt states he was diagnosed with covid on . Quarantined for 5 days and decided to go back to the gym today. Had some dizziness and near syncope after working out. Historical: - Allergies: 15:23 No Known Allergies; ap3 - Home Meds: 15:23 None [Active]; ap3 - PMHx: 15:23 None; ap3 - Immunization history:: Client reports having NOT received the Covid vaccine. - Social history:: Smoking status: Patient denies any tobacco usage or history of. ROS: 17:09 Constitutional: Negative for fever, chills, and weight loss. kb 17:09 Neuro: Positive for dizziness, near syncope. 17:09 All other systems are negative. Exam: 17:09 Constitutional: This is a well developed, well nourished patient who is awake, alert, kb and in no acute distress. Head/Face: Normocephalic, atraumatic. ENT: Moist Mucous membranes Cardiovascular: Regular rate and rhythm with a normal S1 and S2. No gallops, murmurs, or rubs. No pulse deficits. Respiratory: Respirations even and unlabored. No increased work of breathing. Talking in full sentences Abdomen/GI: Soft, non-tender. No distention Skin: Warm, dry with normal turgor. Normal color. MS/ Extremity: Pulses equal, no cyanosis. Neurovascular intact. Full, normal range of motion. Neuro: Awake and alert, GCS 15, oriented to person, place, time, and situation. Moves all extremities. Normal gait. Psych: Awake, alert, with orientation to person, place and time. Behavior, mood, and affect are within normal limits. Vital Signs: 15:19 BP 111 / 76; Pulse 81; Resp 17; Temp 98.2; Pulse Ox 100% ; Weight 86.18 kg; Height 5 ap3 ft. 11 in. (180.34 cm); 16:10 BP 121 / 73 Supine; Pulse 78; Resp 16; Temp 98.6; Pulse Ox 100% on R/A; mb7 16:10 BP 139 / 68 Standing; Pulse 87; Resp 18; Pulse Ox 100% ; mb7 17:39 BP 113 / 65; Pulse 81; Resp 16; Temp 97.9(O); Pulse Ox 99% on R/A; mh5 17:52 BP 119 / 67; Pulse 61; Resp 12; Pulse Ox 100% ; Pain 0/10; eo2 15:19 Body Mass Index 26.50 (86.18 kg, 180.34 cm) ap3 MDM: 15:54 Patient medically screened. kb 17:08 ECG was reviewed by the Attending Physician. Data reviewed: vital signs, nurses notes. kb Data interpreted: Pulse oximetry: on room air is 100 %. Interpretation: normal. Counseling: I had a detailed discussion with the patient and/or guardian regarding: the historical points, exam findings, and any diagnostic results supporting the discharge/admit diagnosis, lab results, the need for outpatient follow up, a family practitioner, to return to the emergency department if symptoms worsen or persist or if there are any questions or concerns that arise at home. 04/27 15:54 Order name: CBC with Diff; Complete Time: 16:48 kb 04/27 15:54 Order name: Basic Metabolic Panel; Complete Time: 16:58 kb 04/27 15:54 Order name: CPK; Complete Time: 16:58 kb 04/27 16:07 Order name: Troponin High Sensitivity kb 04/27 16:07 Order name: Troponin High Sensitivity; Complete Time: 16:58 EDMS 04/27 16:52 Order name: Urine Dipstick-Ancillary; Complete Time: 16:56 EDMS 04/27 15:54 Order name: Orthostatics; Complete Time: 17:50 kb 04/27 15:54 Order name: Urine Dipstick-Ancillary (obtain specimen); Complete Time: 17:50 kb 04/27 15:54 Order name: IV Start; Complete Time: 16:34 kb 04/27 16:07 Order name: EKG; Complete Time: 16:07 kb 04/27 16:07 Order name: EKG - Nurse/Tech; Complete Time: 16:34 kb Administered Medications: 16:38 Drug: NS 0.9% 1000 ml Route: IV; Rate: 1000 ml; Site: right forearm; eo2 17:50 Follow up: Response: No adverse reaction; IV Status: Completed infusion; IV Intake: eo2 1000ml Disposition Summary: 04/27/21 17:20 Discharge Ordered Location: Home kb Condition: Stable kb Diagnosis - Syncope Near kb Followup: kb - With: Emergency Department - When: As needed - Reason: Worsening of condition Followup: kb - With: Private Physician - When: 2 - 3 days - Reason: Recheck today's complaints, Continuance of care, Re-evaluation by your physician Discharge Instructions: - Discharge Summary Sheet kb - Near-Syncope, [id number] kb Forms: - Medication Reconciliation Form kb - Thank You Letter kb - Antibiotic Education kb - Prescription Opioid Use kb Signatures: Dispatcher [employer] EDMS Venecia Saha, ASSOCIATE PROFESSOR OF RADIOLOGY-C Josi Chau RN RN ap3 Patrica Gonzalez RN RN eo2 Corrections: (The following items were deleted from the chart) 17:10 17:09 Neuro: Positive for dizziness, syncope, kb kb
[2021-04-27 19:34] VITALS: TEMP 97.9
[2021-04-27 19:36] VITALS: BP 119/67; O2SAT 100
== END 2021-04-27 17:55 | disposition home or self-care (01) ==
LOC: ER 14:25
DX: R55 Syncope and collapse (principal)
CPT/HCPCS: 85025; 80048; 36415; 82550; 81003; 84484; 96360; 99284; J7030